=== PATIENT | male | born 1960 | race Caucasian/White ===

== ENCOUNTER 2022-11-06 09:00 | Emergency (ER) | payer MEDICARE ==
[~2022-11-06] VITALS: Ht 182.9 cm; Wt 90.7 kg
[2022-11-06 09:08] VITALS: BP 141/87
== END 2022-11-06 10:37 | disposition home or self-care (01) ==
LOC: ER 09:00
DX: M25.551 Pain in right hip (principal); F10.90 Alcohol use, unspecified, uncomplicated
CPT/HCPCS: 73502